=== PATIENT | male | born 2000 | race Caucasian/White ===

== ENCOUNTER 2025-02-21 11:51 | Outpatient (OUT) | payer BC, SELFPAY ==
--- OUTSIDE RECORDS SUMMARY | 2025-01-26 04:33 | XMS_ITS ---
Author Organization [facility] in [place] Address [address] [place] [address] Care Team Providers Care Industrial Chemistry Teacher Name Role Phone Torito Pipo Primary Care Provider REASON FOR VISIT refills Medications Medication SIG (Take, Route, Frequency, Duration) Notes Start Date End Date Status traZODone HCl 50 MG 1 tablet at bedtime as needed Orally Once a day for 90 days 04/30/2023 Active lamoTRIgine 100 MG 1 tablet Orally in t he AM for 90 days Active Trintellix 20 mg 1 tablet Orally Once a day for 90 days Active Vitamin D 50 MCG (1999) 1 capsule Ora lly Once a day for 90 days Active lamoTRIgine 25 MG 3 tablet Orally at bedtime for 90 days 04/24/2023 Active Encounters Encounter Location Date Provider Diagnosis [facility] [address] [place] [address] 01/26/2025 Pipo Ugarte Plan Of Treatment Medication Medication Name Sig Start Date Stop Date Notes traZODone HCl 50 MG 1 tablet at bedtime as needed Orally Once a day for 90 days 04/30/2023 lamoTRIgine 100 MG 1 tablet Orally in t he AM for 90 days Trintellix 20 mg 1 tablet Orally Once a day for 90 days Vitamin D 50 MCG (1999) 1 capsule Ora lly Once a day for 90 days lamoTRIgine 25 MG 3 tablet Orally at b edtime for 90 days 04/24/2023 Progress Notes * Jace PASTOR MDOB:[birth year] (24 yo M)Acc No.[id number]:01/26/2025 Patient: Jace LEE :2000 A ge:24 Y S ex:Male Address:[address] [place] [address], [address] * Refills Refill lamoTRIgine Tablet, 100 MG, Orally, 90, 1 tablet, in the AM, 90 days, Refills=3 Refill traZODone HCl Tablet, 50 MG, Orally, 90 Tablet, 1 tablet at bedtime as needed, Once a day, 90 days, Refills=3 Refill Vitamin D Capsule, 50 MCG (1999 UT), Orally, 90 Capsule, 1 capsule, Once a day, 90 days, Refills=3 Refill lamoTRIgine Tablet, 25 MG, Orally, 270, 3 tablet, at bedtime, 90 days, Refills=3 Refill Trintellix Tablet, 20 mg, Orally, 90 Tablet, 1 tablet, Once a day, 90 days, Refills=3 * true * Date: Generated for Shana redmond/Malcolm/Kiitting on: 0 02/21/2025 11:56 AM EDT
--- OUTSIDE RECORDS SUMMARY | 2025-02-06 10:19 | XMS_ITS ---
Author Organization [facility] in [place] Address [address] [place] [address] Care Team Providers Care Fermentation Operator Name Role Phone Pipo Ugarte Primary Care Provider REASON FOR VISIT Vyvanse refill Medications Medication SIG (Take, Route, Frequency, Duration) Notes Start Date End Date Status Vyvanse 60 MG 1 capsule Orally daily for 30 days f90.9 0 02/06/2025 Active Encounters Encounter Location Date Provider Diagnosis [facility] [address] [place] [address] 02/06/2025 Pipo Ugarte Development delay R62.50 Assessments Encounter Date Diagnosis (ICD Code) Assessment Notes Treatment Notes Treatment Clinical Notes Section Notes 02/06/2025 Development delay (ICD-10 - R62.50) Plan Of Treatment Medication Medication Name Sig Start Date Stop Date Notes Vyvanse 60 MG 1 capsule Orally daily for 30 days f90.9 Progress Notes * Jace CERON MDOB:[birth year] (24 yo M)Acc No.[id number]:02/06/2025 Patient: Jace LEE Chas :2000 A ge:24 Y S ex:Male Address:[address] [place] [address], [address] * Refills Refill Vyvanse Capsule, 60 MG, Orally, 30 Capsule, 1 capsule, daily, 30 days, Refills=0 * true * Date: Generated for Printi ng/Faxing/Ta on: 0 02/21/2025 11:56 AM EDT
--- OUTSIDE RECORDS SUMMARY | 2025-02-18 06:45 | XMS_ITS ---
Author Organization The [facility] in [place] Address [address] [place] [address] Care Team Providers Care Turpentine Farmer Name Role Phone Pipo Ugarte Primary Care Provider Allergies No Known Allergies REASON FOR VISIT 6 month med check-CSA signed Medications Medication SIG (Take, Route, Frequency, Duration) Notes Start Date End Date Status Vyvanse 60 MG 1 capsule Orally dragan ly for 30 days f90.9 02/06/2025 Active Vitamin D 50 MCG (1999) 1 capsule Ora lly Once a day for 90 days Active traZODone HCl 50 MG 1 tablet at bedtime as needed Orally Once a day for 90 days 04/30/2023 Active lamoTRIgine 25 MG 3 tablet Orally at bedtime for 90 days 04/24/2023 Active lamoTRIgine 100 MG 1 tablet Orally in t he AM for 90 days Active Trintellix 20 mg 1 tablet Orally Once a day for 90 days Active Social History Tobacco Use: Social History Observation Description Date Details (start date - stop date) Never Smoker NA - NA Tobacco Use/Smoking Question Answer Notes Patient is a nonsmoker Vital Signs Weight 190.2 lbs 02/18/2025 Height 70 in 02/18/2025 Blood pressure systolic 128 mm Hg 02/19/20 25 Blood pressure diastolic 80 mm Hg 025 BMI 27.29 kg/m2 02/18/2025 Encounters Encounter Location Date Provider Diagnosis [facility] [address] [place] [address] 02/18/2025 Pipo Ugarte Well adult Z00.0 0 Assessments Encounter Date Diagnosis (ICD Code) Assessment Notes Treatment Notes Treatment Clinical Notes Section Notes 02/18/2025 Well adult (ICD-10 - Z00.00) Plan Of Treatment Medication Medication Name Sig Start Date Stop Date Notes Trintellix 20 mg 1 tablet Orally Once a day for 90 days Pending Test Test Name Order Date HEMOGLOBIN A1C (GLYCO) 02/18/2025 INSULIN, TOTAL 02/18/2025 LIPID PANEL (CHOL/TRIG/HDL/LDL) 02/19/20 25 THYROID PANEL (T4/TSH/FREE T3) 5 CMP (COMP MET VEE) w/eGFR CKD-EPI 2024 CBC WITH DIFF 02/18/2025 Progress Notes * Jace PASTOR MDOB:[birth year] (25 yo M)Acc No.[id number]:02/18/2025 Progress Note Patient: Jace LEE Provider: Chantel Ugarte ([facility])MD :2000 A ge:25 Y S ex:Male Date:02/18/2025 Address:[address] [place], [place] [id number] Check In:10:50 AM ESTCheck O ut:11:31 AM EST Subjective: * Chief Complaints: * 6 month med check-CSA signed * HPI: D epression Screening: PHQ-2 (2015 Edition) L ittle interest or pleasure in doing things?�Not at all F eeling down, depressed, or hopeless? S everal days T otal Score 1 * ROS: E ENT: hearing changes d enies. v isual changes d enies.�non-healing mouth sores d enies. s wollen glands or neck lumps d enies. h oarseness d enies. s ore throat d enies. d ifficulty swallowing d enies. n ose bleeds d enies. n vesna congestion d enies. e ar ache d enies. e ar discharge�denies. r inging in ears d enies. l ight sensitivity d enies. e ye pain d enies. b lurring d enies. e ye irritation d enies. d ouble vision d enies.�vision loss d enies. G eneral/Constitutional: Sweats: D enies. F atigue d enies. S leep problems d enies. A norexia d enies. M alaise d enies. W eight loss d enies.�Fatigue or Weakness d enies. F ever or Chills d enies. C ardiovascular: Shortness of Breath w/lying flat d enies. L ightheadedness/dizziness d enies. C hest tightness/ heavy pressure d enies. S welling of legs, ankles, or feet d enies. W aking up with shortness of breath d enies. C hest pain denies. P alpitations d enies. W eight gain d enies. R espiratory: Chronic or frequent cough d enies. C oughing up blood�denies. D ifficulty breathing d enies. P roductive cough d enies. S noring�denies. S hortness of breath that awakens from sleep (PND) d enies. C hest pain d enies. S putum production d enies. W heezing d enies. M usculoskeletal: Joint pain d enies. J oint Fluid d enies. B ack pain d enies. K nee pain d enies. N judith pain d enies. J oint Stiffness d enies. M uscle cramps d enies. W eakness of muscles d enies. A rthritis d enies. M uscle aches d enies. P ain in shoulder(s) d enies. S wollen joints d enies. 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 Modified On:11/30/2022 Status:confirmed F90.9 ADHD Modified On:11/30/2022 Status:confirmed G47.00 Insomnia Modified On:11/30/2022 Status:confirmed H61.20 Cerumen impaction Modified On:11/30/2022 Status:confirmed Z00.00 Well adult Modified On:11/30/2022 Status:confirmed M79.642 Hand pain, left Modified On:11/30/2022 Status:confirmed L02.92 Boil Modified On:05/02/2023 Status:confirmed H10.9 Conjunctivitis Modified On:05/29/2024 Status:confirmed * Medical History: * Surgical History: D enies Past Surgical History * Hospitalization/Major Diagno stic Procedure: D enies Past Hospitalization * Family History: F ather: alive. M other: alive. B rother(s): alive. * Social History: T obacco Use: T obacco Use/Smoking P atient is a n onsmoker * Medications: T akinglamoTRIgine 100 MG Tablet 1 tablet Orally in the AM lamoTRIgine 25 MG Tablet 3 tablet Orally at bedtime traZODone HCl 50 MG Tablet 1 tablet at bedtime as needed Orally Once a day Trintellix(Vortioxetine HBr) 20 mg Tablet 1 tablet Orally Once a day Vitamin D 50 MCG (1999) Capsule 1 capsule Orally Once a day Vyvanse(Lisdexamfetamine Dimesylate) 60 MG Capsule 1 capsule Orally daily , Notes to Pharmacist: f90.9Medication List reviewed and reconciled with the patientTaking lamoTRIgine 100 MG Tablet 1 tablet Orally in the AM Taking lamoTRIgine 25 MG Tablet 3 tablet Orally at bedtime Taking traZODone HCl 50 MG Tablet 1 tablet at bedtime as needed Orally Once a day Taking Trintellix(Vortioxetine HBr) 20 mg Tablet 1 tablet Orally Once a day Taking Vitamin D 50 MCG (1999) Capsule 1 capsule Orally Once a day Taking Vyvanse(Lisdexamfetamine Dimesylate) 60 MG Capsule 1 capsule Orally daily , Notes to Pharmacist: f90.9Medication List reviewed and reconciled with the patient * Allergies: N .K.D.A.no[Allergies Verified] Objective: * Vitals: W t:190.2lbs, Ht: 70 in, BP:128/80mm Hg, BMI:27.29Index, Ht-cm: 177.8 cm, Wt-k.27 kg. * Examination: P hysical Exam: GENERAL: w ell developed, well nourished, in no acute distress. HEAD: n ormocephalic/atraumatic. EYES: p upils equal, round and reactive to light, conjunctivae and sclerae normal. EARS: n o deformity or lesion of external ear, canals and TM appear normal bilaterally, TM's intact, not inflamed with normal light reflex, hearing grossly normal to conversational speech. NOSE: n o deformity, discharge, inflammation, or lesions.� MOUTH: m ucous membranes moist, normal oropharynx and posterior pharynx without lesions or exudates, tongue normal, dentition normal. NECK: n judith supple, no masses or palpable cervical nodes, trachea midline, thyroid without nodules, masses, tenderness, or enlargement. CHEST: n o chest wall deformity, no chest wall tenderness.� LUNGS: n ormal respiratory effort and clear to auscultation, no wheezes, rales, or rhonchi, good air exchange. CARDIO: r egular rate and rhythm, normal S1 and S2, nor murmur, rub, or gallop. PULSES: n ormal capillary refill. ABDOMEN: s oft, non-distended, non-tender, no masses. MUSCULOSKELETAL: n o deformity or scoliosis noted, normal range of motion, joints normal, no erythema, edema, effusion, or ecchymosis. EXTREMITY: n o clubbing, cyanosis, edema, or deformity with normal ROM in both upper and lower bilateral extremities. NEUROLOGIC: g rossly normal. SKIN: n o rashes, ulcerations, or suspicious lesions. LYMPH NODES: n o cervical adenopathy, nodes normal. MENTAL STATUS: a lert and oriented x3, normal mood and affect. Assessment: * Assessment: 1. W ell adult - Z00.00 (Primary) Plan: * Treatment: * Procedure Codes: * Preventive Medicine: Screenings/Counseling: B PR ACTION PLAN Above Normal BMI Follow-up D ietary management education, guidance, and counseling * * Sign off status: Completed Visit Status: C HK (Check Out) true * Provider: Chantel Ugarte ([facility])MD Date: 02/18/2025 Generated for Printi ng/Faxing/eTransmitting on: 02/21/2025 11:56 AM EDT History and Physical Notes * HPI (History of Present Illness) Category Sub-Category Detail Notes Category Not es Depression Screening PHQ-2 (2015 Edition) Little interest or pleasure in doing things?: Not at all Feeling down, depressed, or hopeless?: S everal days Total Score: 1 Examination Category Sub-Category Detail Notes Category Not es Physical Exam GENERAL: well developed, well nourished, in no acute distress HEAD: normocephalic/atraum atic EYES: pupils equal, round and reactive to light, conjunctivae and sclerae normal EARS: no deformity or lesi on of external ear, canals and TM appear normal bilaterally, TM's intact, not inflamed with normal light reflex, hearing grossly normal to conversational speech NOSE: no deformity, discha rge, inflammation, or lesions MOUTH: mucous membranes [address] st, normal oropharynx and posterior pharynx without lesions or exudates, tongue normal, dentition normal NECK: neck supple, no mass es or palpable cervical nodes, trachea midline, thyroid without nodules, masses, tenderness, or enlargement CHEST: no chest wall deform ity, no chest wall tenderness LUNGS: normal respiratory e ffort and clear to auscultation, no wheezes, rales, or rhonchi, good air exchange CARDIO: regular rate and rhy thm, normal S1 and S2, nor murmur, rub, or gallop PULSES: normal capillary ref ill ABDOMEN: soft, non-distended, non-tender, no masses RECTAL: MUSCULOSKELETAL: no deformity or scol iosis noted, normal range of motion, joints normal, no erythema, edema, effusion, or ecchymosis EXTREMITY: no clubbing, cyanosi s, edema, or deformity with normal ROM in both upper and lower bilateral extremities NEUROLOGIC: grossly normal SKIN: no rashes, ulceratio ns, or suspicious lesions LYMPH NODES: no cervical adenopat hy, nodes normal MENTAL STATUS: alert and oriented x 3, normal mood and affect
--- OUTSIDE RECORDS SUMMARY | 2025-02-21 11:56 | XMS_ITS | Patient Health Record ---
Author Organization The [facility] in [place] Address [address] [place] [address] Care Team Providers Care Vegetable Harvest Machine Operator Name Role Phone Pipo Ugarte Primary Care Provider Shavon Giles [phone] Allergies No Known Allergies Reason For Referral No Information Medications Medication SIG (Take, Route, Frequency, Duration) [...] Question Answer Notes Patient is a nonsmoker Alcohol Screen (Audit-C) Question Answer Notes Did you have a drink contain ing alcohol in the past year? Yes How often did you have 6 or more drinks on one occasion in the past year? Monthly or less (1 point) How many drinks did you have on a typical day when you were drinking in the past year? 1 or 2 drinks (0 point) How often did you have a dri nk containing alcohol in the past year? Never (0 point) Points 1 Interpretation Negative AUDIT-C (Standard) Question Answer Notes Did you have a drink containing alcohol in the p ast year? No Points 0 Interpretation Negative Problems Problem Type SNOMED Code ICD Code Onset Dates Problem Status W/U Status Risk Notes Problem Insomnia (762325340) Insomnia (G47.00) Active confirmed Problem Impacted cerumen (24171720) Cerumen impaction (H61.20) Active confirmed Problem Well adult (784690911) Well adult (Z00.00) Active confirmed Problem Boil (47555025) Boil (L02.92) Active confirmed Problem Pain in limb (16996384) Hand pain, left (M79.642) Active confirmed Problem Conjunctivitis (1299214) Conjunctivitis (H10.9) Active confirmed Problem Scoliosis (342448230) Scoliosis (M41.9) Active confirmed Problem Overweight (161933593) Over weight (E66.3) Active confirmed Problem Developmental delay (867121189) Development delay (R62.50) Active confirmed Problem Suicidal ideation (1869611) Suicidal ideation (R45.851) Active confirmed Problem Contact dermatitis (42470709) Dermatitis of both ear canals (L25.9) Active confirmed Problem Otitis media (73720525) Unspecified otitis media (H66.90) Active confirmed Problem Autistic disorder, current or active state (F84.0) Active confirmed Problem 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 Problem Attention deficit hyperactivity disorder (725366933) ADHD (F90.9) Active confirmed Vital Signs Blood pressure diastolic 80 mm Hg 02/18/2025 Height 70 in 02/18/2025 Blood pressure systolic 128 mm Hg 02/18/2025 Weight 190.2 lbs 02/18/2025 BMI 27.29 kg/m2 02/18/2025 Encounters Encounter Location Date Provider Diagnosis [facility] [address] [place] [address] 12/09/2024 Pipo Hoy Development delay R62.50 [facility] [address] [place] [address] 01/08/2025 Pipo Hoy Development delay R62.50 [facility] [address] [place] [address] 01/26/2025 Pipo Hoy [facility] [address] [place] [address] 02/06/2025 Pipo Hoy Development delay R62.50 [facility] [address] [place] [address] 11/04/2024 Pipo Hoy [facility] [address] [place] [address] 11/10/2024 Pipo Hoy [facility] [address] [place] [address] 11/10/2024 Pipo Hoy [facility] [address] [facility] [place] [address] 11/11/2024 Pipo Hoy Development delay R62.50 [facility] [address] [facility] [place] [address] 11/11/2024 Pipo Hoy Development delay R62.50 [facility] [address] [facility] [place] [address] 11/11/2024 Pipo Hoy Development delay R62.50 [facility] [address] [facility] [place] [address] 08/04/2024 Pipo Hoy [facility] [address] [facility] [place] [address] 08/05/2024 Pipo Hoy [facility] [address] [facility] [place] [address] 08/11/2024 Pipo Hoy Development delay R62.50 [facility] [address] [place] [address] 08/14/2024 Pipo Hoy [facility] [address] [place] [address] 09/18/2024 Pipo Hoy [facility] [address] [place] [address] 10/08/2024 Pipo Hoy Development delay R62.50 [facility] [address] [facility] [place] [address] 05/06/2024 Pipo Hoy [facility] [address] [place] [address] 05/13/2024 Pipo Hoy Development delay R62.50 [facility] [address] [place] [address] 05/15/2024 Pipo Hoy Development delay R62.50 [facility] [address] [place] [address] 06/11/2024 Pipo Hoy [facility] [address] [place] [address] 06/11/2024 Pipo Hoy Development delay R62.50 [facility] [address] [facility] [place] [address] 07/11/2024 Pipo Hoy Development delay R62.50 [facility] [address] [place] [address] 03/03/2024 Pipo Hoy [facility] [address] [facility] [place] [address] 03/19/2024 Pipo Hoy Development delay R62.50 [facility] [address] [place] [address] 04/04/2024 Pipo Hoy [facility] [address] [place] [address] 04/04/2024 Pipo Hoy Development delay R62.50 [facility] [address] [place] [address] 04/23/2024 Pipo Hoy Development delay R62.50 [facility] [address] [place] [address] 05/01/2024 Pipo Hoy [facility] [address] [place] [address] 03/03/2024 Pipo Hoy [facility] [address] [place] [address] 05/29/2024 Pipo Hoy Conjunctivitis H10.9 ; ADHD F90.9 and Autistic disorder, current or active state F84.0 [facility] [address] [place] [address] 03/17/2024 Pipo Ugarte Development delay R62.50 [facility] [address] [place] [address] 07/15/2024 Shavon Giles Nausea and vomiting R11.2 [facility] [address] [place] [address] 02/18/2025 Pipo Martinezy Well adult Z00.00 Assessments Encounter Date Diagnosis (ICD Code) Assessment Notes Treatment Notes Treatment Clinical Notes Section Notes 07/15/2024 Nausea and vomiting (ICD-10 - R11.2) feeling better does not need nausea med needs off work note for yesterday 02/18/2025 Well adult (ICD-10 - Z00.00) 03/19/2024 Development delay (ICD-10 - R62.50) 04/04/2024 Development delay (ICD-10 - R62.50) 04/23/2024 Development delay (ICD-10 - R62.50) 05/13/2024 Development delay (ICD-10 - R62.50) 05/15/2024 Development delay (ICD-10 - R62.50) 06/11/2024 Development delay (ICD-10 - R62.50) 07/11/2024 Development delay (ICD-10 - R62.50) 08/11/2024 Development delay (ICD-10 - R62.50) 10/08/2024 Development delay (ICD-10 - R62.50) 11/11/2024 Development delay (ICD-10 - R62.50) 11/11/2024 Development delay (ICD-10 - R62.50) 11/11/2024 Development delay (ICD-10 - R62.50) 12/09/2024 Development delay (ICD-10 - R62.50) 01/08/2025 Development delay (ICD-10 - R62.50) 02/06/2025 Development delay (ICD-10 - R62.50) 03/17/2024 Development delay (ICD-10 - R62.50) 05/29/2024 Conjunctivitis (ICD-10 - H10.9) send ing drops 05/29/2024 ADHD (ICD-10 - F90.9) stabel wiht meds 05/29/2024 Autistic disorder, current or active state (ICD-10 - F84.0) doing well - work ing Plan Of Treatment Pending Test Test Name Order Date HEMOGLOBIN A1C (GLYCO) 02/18/2025 INSULIN, TOTAL 02/18/2025 LIPID PANEL (CHOL/TRIG/HDL/LDL) 02/19/20 25 THYROID PANEL (T4/TSH/FREE T3) CMP (COMP MET VEE) w/eGFR CKD-EPI 2024 CBC WITH DIFF 02/18/2025 Insurance Providers Payer Name Payer Address Payer Phone Subscriber Number Group Number Insured Name Patient Relationship to Insured Coverage Start Date Coverage End Date O [address] [place], [place] [id number] Antoinette Ceron Child - Insured does not have Financial Responsibility (includes legally adopted child) Medical (General) History Medical History History ICD Code Well adult Z00.00 Over weight E66.3 Hand pain, left M79.642 Suicidal ideation R45.851 Unspecified otitis media H66.90 Cerumen impaction H61.20 Scoliosis M41.9 Insomnia G47.00 Dermatitis of both ear canals L25.9 ADHD F90.9 Autistic disorder, current or active sta te 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
[2025-02-21 12:11] LABS: Hematocrit 44.9 % (42.0-54.0); Hemoglobin 15.4 g/dL (14.0-18.0); Immature Granulocytes Abs Auto 0.02 10^3/uL (0.00-0.03); Immature Granulocytes Pct Auto 0.4 % (0.0-0.5); Lymphocytes Absolute Auto 1.7 10^3/uL (1.2-3.8); Mean Corpuscular HGB Conc 34.3 g/dL (29.9-35.2); Mean Corpuscular Hemoglobin 30.6 pg (25.9-34.0); Mean Corpuscular Volume 89.1 fL (80.0-94.0); Platelet Count 194 10^3/uL (150-450); Red Blood Count 5.04 10^6/uL (4.70-6.10); White Blood Count 5.4 10^3/uL (4.0-11.0)
[2025-02-21 12:53] LABS: Alanine Aminotransferase 33 U/L (16-63); Albumin Globulin Ratio 1.3; Albumin Level 4.0 g/dL (3.4-5.0); Alkaline Phosphatase 98 U/L (46-116); Anion Gap 13.8; Aspartate Amino Transferase 17 U/L (15-37); Blood Urea Nitrogen 16.0 mg/dL (7.0-18.0); Calcium 9.1 mg/dL (8.5-10.1); Carbon Dioxide 29.5 mmol/L (21.0-32.0); Chloride 104 mmol/L (98-107); Cholesterol 157 mg/dL (<=200); Estimated GFR (African America >60 (>=60 mL/min/1.73m^2); Estimated GFR (Non-African Ame >60 (>=60 mL/min/1.73m^2); Free T3 3.27 pg/mL (2.18-3.98); Globulin 3.0 g/dL; Glucose 94 mg/dL (74-106); HDL Cholesterol 64 mg/dL (40-60); Potassium 4.3 mmol/L (3.5-5.1); Sodium 143 mmol/L (136-145); Thyroid Stimulating Hormone 1.391 uIU/mL (0.358-3.740); Total Protein 7.0 g/dL (6.4-8.2); Triglycerides 72 mg/dL (<=150); VLDL CHOLESTEROL 14.4 mg/dL
== END 2025-02-21 11:52 | disposition home or self-care (01) ==
PROVIDERS: PCP Family Medicine; Visit Provider Family Medicine
DX: Z00.00 Encounter for general adult medical examination without abnormal findings (principal)
CPT/HCPCS: 36415; 80053; 80061; 83036; 83525; 84436; 84443; 84481; 85025